=== PATIENT | male | born 1950 | race Caucasian/White ===

== ENCOUNTER 2016-11-13 09:42 | Day surgery (SDC) | payer MEDICARE, OTHER ==
[~2016-11-13 09:42] MED LIST: Lactated Ringers 1,000 ML IV SCH; Sodium Chloride 0.9% 10 ML Syringe FLUSH PRN
[2016-11-13] MEDS ORDERED: Citric Acid/Sodium Citrate Solution 30 ML Cup PO ONE (10:04)
[2016-11-13] MEDS ORDERED: fentaNYL 100 MCG/2 ML SDV ONE (10:09)
[2016-11-13] MEDS ORDERED: Propofol 200 MG/20 ML SDV ONE ×2 (10:09→11:16)
[2016-11-13 12:15] VITALS: BP 123/81
--- NOTE | 2016-11-14 04:03 | OR ---
PREOPERATIVE DIAGNOSIS: Screening colonoscopy. POSTOPERATIVE DIAGNOSIS: Screening colonoscopy. PROCEDURE PERFORMED: Screening colonoscopy. INDICATION: The patient is a 66-year-old male, who presents for his 1st screening colonoscopy at this time. PROCEDURE IN DETAIL: The patient was brought to the endoscopy suite. Sedation was given per Anesthesia. He was placed in left lateral position. First, rectal exam was done and was normal. The scope was introduced into the rectum, slowly advanced through the rectum, sigmoid, descending, transverse, and ascending colon until the cecum was reached. Upon reaching the cecum, the scope was slowly withdrawn looking all mucosal surfaces on the way out. No mucosal abnormalities, lesions, or polyps were noted. FINAL DIAGNOSIS: Normal colonoscopy with the exception of a few diverticula scattered throughout the sigmoid colon. BKD: 11/13/2016 11:37:07 MODL: 11/14/2016 03:58:44 /[id number]
== END 2016-11-13 13:33 | disposition home or self-care (01) ==
LOC: VM.SDS 09:42
PROVIDERS: ATTEND Surgery
DX: K57.30 Diverticulosis of large intestine without perforation or abscess without bleeding (principal); Z79.899 Other long term (current) drug therapy; R73.9 Hyperglycemia, unspecified
CPT/HCPCS: A9270; G0121; J2704; J3010; J7120

== ENCOUNTER 2024-11-10 06:36 | Day surgery (SDC) | payer MEDICARE, OTHER ==
[~2024-11-10 06:36] MED LIST changes: +Brimonidine 0.2% Ophth Soln 5 ML Bottle ONE; +Dexamethasone/Neomycin/Polymyxin B Ophth Oint 3.5 GM Tube ONE; -Lactated Ringers 1,000 ML IV SCH; +Lidocaine 1% 2 ML ONE; +Phenyleprhine/Ketorolac 4 ML Vial ONE; +Povidone-Iodine 5% Sterile Ophth Soln 30 ML Bottle ONE; +Proparacaine 0.5% Ophth Soln 15 ML Bottle ONE; -Sodium Chloride 0.9% 10 ML Syringe FLUSH PRN
[2024-11-10] MEDS: Phenylephrine 2.5% Ophth Soln 2 ML Bot EYELF SCH (06:50)
[2024-11-10] MEDS: Tropicamide 1% Ophth Soln 15 ML Bottle EYELF SCH (06:50)
[2024-11-10] MEDS: Cyclopentolate 1% Opth Soln 2 ML Bottle EYELF SCH (06:50)
[2024-11-10] MEDS: Moxifloxacin 0.5% Ophth Soln 3 ML Bottle EYELF ONE ×2 (07:10→08:22)
[2024-11-10] MEDS ORDERED: fentaNYL 100 MCG/2 ML SDV ONE (07:27)
[2024-11-10] MEDS ORDERED: Midazolam 1 MG/ML 2 ML SDV ONE (07:27)
[2024-11-10] MEDS: Povidone-Iodine 5% Sterile Ophth Soln 30 ML Bottle EYELF ONE (08:21)
[2024-11-10] MEDS: Balanced Salt Solution Ophth Irrig 500 ML Bottle IOCULAR ONE (08:22)
[2024-11-10] MEDS: Phenyleprhine/Ketorolac 4 ML Vial IO ONE (08:22)
[2024-11-10] MEDS: Lidocaine 1% PF 2 ML SDV INFILT ONE (08:22)
[2024-11-10] MEDS: Dexamethasone/Neomycin/Polymyxin B Ophth Oint 3.5 GM Tube EYELF ONE (08:23)
[2024-11-10] MEDS: Chondroitin Sulfate/Hyaluronate Sodium Ophth Inj 0.5 ML Syringe IOCULAR ONE (08:23)
[2024-11-10] MEDS: Brimonidine 0.2% Ophth Soln 5 ML Bottle EYELF ONE (08:23)
[2024-11-10] MEDS ORDERED: ceFAZolin 500 MG Vial ONE (08:25)
[2024-11-10] MEDS: acetaZOLAMIDE 500 MG Cap.ER PO ONE (08:40)
[2024-11-10 08:47] VITALS: BP 132/76; PULSE 63
== END 2024-11-10 09:00 | disposition home or self-care (01) ==
LOC: VM.SDS 06:36
PROVIDERS: ATTEND Ophthalmology
DX: H25.813 Combined forms of age-related cataract, bilateral (principal); H02.831 Dermatochalasis of right upper eyelid; H02.834 Dermatochalasis of left upper eyelid; E78.2 Mixed hyperlipidemia; K21.9 Gastro-esophageal reflux disease without esophagitis; N18.31 Chronic kidney disease, stage 3a; G20.A1 Parkinson's disease without dyskinesia, without mention of fluctuations; Z79.899 Other long term (current) drug therapy
CPT/HCPCS: 00142; 99100; A9270-GY; J0690; J1097; J2003; J2250; J3010; J3490; V2632